=== PATIENT | female | born 2000 | race Caucasian/White ===

== ENCOUNTER 2024-01-27 19:49 | Emergency (ER) | payer SELFPAY ==
[~2024-01-27] VITALS: Ht 170.2 cm; Wt 52.3 kg
[2024-01-27 19:50] VITALS: TEMP 98
[2024-01-27] MEDS ORDERED: NS 1,000 ML IV ONE (21:00)
[2024-01-27] MEDS ORDERED: EPIPEN 2-PAK1 MG/ML IM (21:04)
[2024-01-27 22:14] VITALS: BP 108/61; PULSE 98
== END 2024-01-27 22:19 | disposition home or self-care (01) ==
LOC: COL.ER 19:49
DX: T78.1XXA Other adverse food reactions, not elsewhere classified, initial encounter (principal); X58.XXXA Exposure to other specified factors, initial encounter
CPT/HCPCS: J7030